=== PATIENT | female | born 1940 | race Caucasian/White ===

== ENCOUNTER 2017-05-08 15:41 | Inpatient (IN) | payer MEDICARE, OTHER, MEDICAID ==
[~2017-05-08] VITALS: Ht 160 cm; Wt 40.8 kg
[~2017-05-08 15:41] MED LIST: ACETAMINOPHEN325 M1 PO; AMOXICILLIN 50500 M1 PO; AMOXICILLIN875 MG; ARICEPT 5 MG TAB5 MG PO; ARICEPT10 M1 PO; ASPIR 8181 MG PO; ASPIRIN325 PO; ATIVAN1 MG PO; B12INJ PO; BACTRIM DS TAB1 EACH; BAYER CHEWABLE81 MG PO; BENADRYL25 MG PO; BUSPIRONE HCL10 MG PO; CARBIDOPA-LEVO1 EAC2 PO; CARBIDOPA-LEVO1 EAC6 PO; CARBIDOPA-LEVO1 EAC7 PO; CELEBREX 200 M200 M1 PO; CIPRO500 MG PO; COLACE 100 MG100 MG PO; COLACE100 MG PO; CRANBERRY200 MG PO; D3 DOTS2000 UNIT; DAIRY AID3000 UNIT PO; EFFEXOR XR75 MG PO; ENOXAPARIN30 MG/0.3 SQ; FLORANEX GRANU1 EACH PO; FLORANEX PACKET1 GM PO; FLORANEX TABLE1 EACH PO; FLORINEF ACETA0.1 MG PO; FOLIC ACID 40400 MCG PO; FOLIC ACID1 MG PO; HALDOL 0.5 MG0.5 MG PO; HALOPERIDOL 2 MG2 M1 PO; HYDROCODON-ACE1 EAC7 PO; HYDROCODONE-AP1 EAC6 PO; IBUPROFEN 600600 M1; KEFLEX500 MG PO; LEVAQUIN 500 M500 M1 PO; MACROBID 100 M100 M1 PO; MAPAP325 MG PO; MEGACE ES625 MG/5 M PO; METAMUCIL1 EAC1 PO; MIDODRINE HCL 55 M1 PO; MILK OF MA2400 MG/10 PO; MIRALAX17 GM PO; MIRALAX255 GM PO; MIRAPEX0.5 MG PO; MOM PO; NORCO 5-325 TA1 EAC1 PO; NORCO 5-325 TA1 EACH; NORCO 5-325 TA1 EACH PO; NUPLAZID17 MG PO; PROBIOTIC1 EAC1 PO; PROMETHEGAN12.5 MG PO; SENNA; SINEMET 25-1001 EAC1 PO; SINEMET CR 50/21 TAB PO; STALEVO 150 TA1 EACH PO; STOOL SOFTENER100 M1 PO; TRAMADOL 50 MG50 MG PO; VENLAFAXIN75 MG/1 T2 PO; VITAMIN B-12100 MC1; VITAMIN B-12100 MC1 PO; VITAMIN B122500 MCG PO; VITAMIN D 5050000 I1 PO; VITAMIN D PO; VOLTAREN GEL 1100 G1 TOP; VOLTAREN100 GM TOP; ZOFRAN4 MG PO; ZYPREXA2.5 MG PO; [UNRECOGNIZED DRUG - OTHER] PO
[2017-05-08 15:43] VITALS: BP 148/70
[2017-05-08 16:50] LABS: ABSOLUTE BASOPHILS 0.1 thou/uL (0.0-0.2); ABSOLUTE EOSINOPHILS 0.1 thou/uL (0.0-0.7); ABSOLUTE LYMPHOCYTES 0.9 thou/uL (0.8-5.3); ABSOLUTE MONOCYTES 0.4 thou/uL (0.0-1.2); ABSOLUTE NEUTROPHILS 3.5 thou/uL (1.6-8.1); BASOPHILS 1.3 %; EOSINOPHILS 1.1 %; HEMATOCRIT 36.9 % (37.0-47.0); HEMOGLOBIN 12.3 gm/dL (12.0-15.0); LYMPHOCYTES 18.8 %; MCH 31.1 pg (26.0-34.0); MCHC 33.4 g/dL (28.0-37.0); MCV 92.9 fL (80.0-100.0); MONOCYTES 7.9 %; NUCLEATED RBCS 0 /100WBC; PLATELET COUNT* 324 thou/uL (150-400); POLYS 70.9 %; RBC 3.98 mil/uL (4.20-5.00); RDW-CV 14.3 % (10.5-14.5); WBC 4.9 thou/uL (4.0-11.0)
[2017-05-08 16:55] LABS: APTT 25.7 Seconds (25.0-31.3); PROTIME 10.2 Seconds (9.20-11.50)
[2017-05-08 16:56] LABS: ANION GAP 6 mmol/L (7-16); BUN 20 mg/dL (7-18); CALCIUM 8.3 mg/dL (8.5-10.1); CHLORIDE 106 mmol/L (98-107); CO2 29 mmol/L (21-32); CREATININE 0.7 mg/dL (0.6-1.3); GLUCOSE 87 mg/dL (70-99); SODIUM 141 mmol/L (136-145)
[2017-05-08 17:13] LABS: URINE BILIRUBIN NEGATIVE (Negative); URINE BLOOD NEGATIVE (Negative); URINE CLARITY CLEAR; URINE COLOR YELLOW; URINE GLUCOSE-RANDOM NEGATIVE (Negative); URINE KETONES NEGATIVE (Negative); URINE LEUKOCYTES-REFLEX NEGATIVE (Negative); URINE NITRITE-REFLEX NEGATIVE (Negative); URINE PROTEIN NEGATIVE (Negative); URINE SPECIFIC GRAVITY 1.015 (1.005-1.030); URINE UROBILINOGEN 0.2 E.U./dl (0.2-1.0)
[2017-05-08 17:17] LABS: ALBUMIN 2.9 g/dL (3.4-5.0); ALKALINE PHOSPHATASE 84 U/L (46-116); CK-MB MASS 0.8 ng/mL (<0.5-3.6); NT-PRO BRAIN NAT PEPTIDE 1224 pg/mL (<300); SGOT 18 U/L (15-37); SGPT 16 U/L (30-65); TOTAL BILIRUBIN 0.5 mg/dL (<0.1-1.0); TOTAL PROTEIN 6.4 g/dL (6.4-8.2)
[2017-05-08 17:33] LABS: TROPONIN-I LEVEL <0.06 ng/mL (<0.06)
[2017-05-08 18:40] LABS: INFLUENZA A ANTIGEN None Detected (None Detect); INFLUENZA B ANTIGEN None Detected (None Detect)
--- NOTE | 2017-05-08 19:27 | NUR ---
RE: PHARMACY TO MANAGE VANCOMYCIN (EMPIRIC THERAPY, SUSPECT UTI, AMS) LABS: WT=44.9KG, WBC=4.9, SCR=0.7, CRCL=47.7, TMAX=37.2. LOADING DOSE OF 1.25GM ORDERED AND WILL CONTINUE 0.75GM Q12 HOURS. TROUGH SCHEDULED FOR 05/10/16 AT 0730, WITH A GOAL OF 15-20MCG/ML. PHARMACY WILL CONTINUE TO FOLLOW. THANK YOU.
[2017-05-08 20:00] VITALS: BP 142/69
[2017-05-08 20:08] VITALS: BP 150/67
--- NOTE | 2017-05-08 23:31 | NUR ---
PATIENT ADMITTED TO THE UNIT FOR AMS, FROM ER. TRANSFERRRED FROM LOCAL [facility] DUE TO AMS, DAUGHTER STATES, NOT HERSELF. RECENT PNEUMONIA, LUNGS CLEAR, CURRENTLY ON 2 LITERS OF 02. STATS IN THE 90S. WILL CONT. TO MONITOR TELE WHICH SHOWS SR WITH PAC. NO COMPLAINTS OF PAIN. PATIENT IS TO HAVE [facility] AT 0800, 1100,1400,1700, AND 2000. PHARMACY WILL PLACE ORDER. NO SIGN OF DISTRESS. HEALED WOUND ON COCCYX. WILL TAKE PICTURE AND PLACE IN CHART.
[2017-05-08 23:50] VITALS: BP 129/64
--- NOTE | 2017-05-09 00:51 | NUR ---
PATIENT IS SLEEPING BUT AROUSABLE. CONT. NS 100 PER HOUR. IV VANCO AND ROCEPHIN, PICTURE OF BUTTOCK TAKEN, CONT. TO TURN EVERY 2 HOURS, BARRIER CREAM NEEDED. NO SIGN OF DISTRESS AT THIS TIME.
[2017-05-09 04:16] LABS: HEMATOCRIT 29.6 % (37.0-47.0); MCH 30.8 pg (26.0-34.0); MCHC 33.1 g/dL (28.0-37.0); MPV 7.1 fl. (7.2-11.1); RBC 3.18 mil/uL (4.20-5.00); RDW-CV 14.1 % (10.5-14.5); WBC 4.9 thou/uL (4.0-11.0)
[2017-05-09 04:20] LABS: HEMOGLOBIN 9.8 gm/dL (12.0-15.0)
[2017-05-09 04:23] VITALS: BP 129/71
[2017-05-09 04:25] LABS: ALBUMIN 2.2 g/dL (3.4-5.0); CALCIUM 7.5 mg/dL (8.5-10.1); CREATININE 0.7 mg/dL (0.6-1.3); MAGNESIUM 2.1 mg/dL (1.8-2.4); POTASSIUM 4.1 mmol/L (3.5-5.1); TOTAL BILIRUBIN 0.5 mg/dL (<0.1-1.0)
--- NOTE | 2017-05-09 05:58 | NUR ---
PATIENT WAS GRAM POSITIVE COCCI IN BLOOD CULTURE DRAW IN ER. DR HERRMANN CALLED AND NEW ORDERS FOR STAT REPEAT WITH LACTIC ACID AND LEVOQUIN IV Q 24 HOURS. ORDERS NOTED.
--- NOTE | 2017-05-09 06:10 | NUR ---
PATIENT IS AFIBRILE. SLEEPING MOST OF THE NIGHT. CONT. IVF AT 100 PER HOUR. BLOOD CULTURES AND LACTIC ACID DRAWN BY LAB. NO DISTRESS AT THIS TIME.
[2017-05-09 08:00] VITALS: BP 121/64
[2017-05-09 12:12] VITALS: BP 138/72
--- NOTE | 2017-05-09 13:45 | EKG ---
[place] [address] ELECTROCARDIOGRAM REPORT Name: APRIL MARTINEZ Room: [address] ADM IN [facility].#: [id number] Admission: 05/08/17 Attend Phys: Meet Jones, Discharge: Date of : 40 Report #: [id number] THIS REPORT FOR: //name// [facility] ED Test Date: 2017-05-08 Test Time: 15:46:28 Pat Name: PARIL MARTINEZ Department: Room: [facility] Gender: F Rn Employee Health: CARSON : 1940 Requested By: Navin Torres Order Number: [id number] MD: Adria Mitchell Measurements Intervals [place] Rate: 65 P: 66 MN: 120 QRS: 8 QRSD: 96 T: 31 QT: 405 QTc: 422 Interpretive Statements Sinus rhythm Borderline low voltage, extremity leads septal infarct, old Compared to ECG 04/24/2017 02:15:21 Myocardial infarct finding now present Ventricular premature complex(es) no longer present st changes less prominent Electronically Signed On 05-09-2017 13:45:35 [employer]AURANT DISTRICT MANAGER by Adria Mitchell [email or web address] <ELECTRONICALLY SIGNED> By: Adria Mitchell MD, FACC 05/09/17 1345 1546 1546 Adria Mitchell MD, [facility] /EPI
[2017-05-09 15:55] VITALS: BP 124/53
--- NOTE | 2017-05-09 18:39 | NUR ---
I ASSUMED CARE OF THE PATIENT AT 0700. SHE IS ALERT AND ORIENTED X2 WITH CONFUSION. SHE HAS AN ALTERED MENTAL STATUS. BLOOD CULTURES CAME BACK POSITIVE TODAY AND FAMILY WAS NOTIFIED. A SWALLOW STUDY AND A CHEST XRAY WERE ORDERED TODAY. HOME MED WAS VERIFYED AND IS IN THE PATIENT DRAWER. SHE TAKES HER PILLS WHOLE IN APPLESAUCE. I SPOKE WITH THE DAUGHTER BAILEY AT 0915 AND AT 0800. HER NIKHIL WAS AT THE BEDSIDE MOST OF THE DAY. SHE IS INCONT OF BOWEL/BLADDER AND WAS UP ONE TIME TO USE THE BSC TODAY. THE WOUND ON HER BUTTOCK WAS OPEN AT THE BEGINNING OF SHIFT CHANGE AND A DRESSING WAS APPLIED. BED IS IN THE LOW LOCKED POSITION AND CALL LIGHT IS IN REACH. BED ALARM IS ON. HOURLY ROUNDING WAS COMPLETED. PATIENT NEEDS WERE MET AND PAIN WAS MANAGED. SHE IS PROGRESSING TOWARD GOALS AND I WILL CONTINUE TO MONITOR. PATIENT WAS TURNED EVERY TWO HOURS AND A BATH WAS GIVEN, FRESH LINENS APPLIED.
[2017-05-09 20:00] VITALS: BP 134/70
[2017-05-10] VITALS (8 sets, daily range): BP systolic 109–156; BP diastolic 53–73
--- NOTE | 2017-05-10 04:11 | NUR ---
ASSUMED CARE OF PT AT 1930, NURSING ASSESSMENT COMPLETED AT START OF SHIFT, PT VOICED NO CONCERNS THIS SHIFT, PT DENIES PAIN THIS SHIFT, CONTINUES ON TELE MONITOR, TRACING SINUS RHYTHM WITH OCCASIONAL PACS. HOURLY ROUNDING COMPLETED, Q2H TURNS COMPLETED, FALL PRECAUTIONS IN PLACE, CALL LIGHT WITHIN REACH.
--- NOTE | 2017-05-10 08:40 | NUR ---
VANCOMYCIN PHARMACY TO MANAGE: PATIENT HAS BEEN RECEIVING A MAINTENANCE DOSE OF VANCOMYCIN 750 MG IV Q12H WITH A TROUGH GOAL OF 15-20 MCG/ML. TEMP=36.7, NO NEW LABS FOR 05/10/17. TROUGH WAS DRAWN APPROPRIATELY WITH A RESULT OF 13 MCG/ML WHICH IS BELOW GOAL. PLAN IS TO INCREASE MAINTENANCE DOSE TO VANCOMYCIN 1 G IV Q12H WITH A TROUGH GOAL OF 15-20 MCG/ML. A TROUGH IS ORDERED FOR 05/12 AT 0830. PHARMACY WILL CONTINUE TO FOLLOW AND MONITOR.
--- NOTE | 2017-05-10 16:54 | NUR ---
ALERT AND ORIENTED X4. UP WITH ASSIST X1 WITH GAIT BELT. IV IS PATENT AND INFUSING. DENIES PAIN AND NAUSEA. ATTENDED THERAPY THIS AM. TOLERATING DIET. VSS ON ROOM AIR. HOURLY ROUNDS HAVE BEEN MAINTAINED THROUGHOUT SHIFT. CALL LIGHT IS WITHIN REACH. NURSING WILL CONTINUE TO MONITOR.
--- NOTE | 2017-05-10 22:49 | NUR ---
ASSUMED CARE OF PT AT 1930, NURSING ASSESSMENT COMPLETED AT START OF SHIFT, PT VOICED NO CONCERNS, PT MED SURG STATUS. FALL PRECAUTIONS IN PLACE, CALL LIGHT WITHIN REACH.
[2017-05-11 04:12] LABS: HEMATOCRIT 29.5 % (37.0-47.0); HEMOGLOBIN 9.6 gm/dL (12.0-15.0); MCH 30.4 pg (26.0-34.0); MCHC 32.6 g/dL (28.0-37.0); MCV 93.2 fL (80.0-100.0); RBC 3.17 mil/uL (4.20-5.00); RDW-CV 14.1 % (10.5-14.5); WBC 5.1 thou/uL (4.0-11.0)
[2017-05-11 04:18] LABS: CALCIUM 8.3 mg/dL (8.5-10.1); CREATININE 0.6 mg/dL (0.6-1.3); MAGNESIUM 1.9 mg/dL (1.8-2.4); POTASSIUM 3.2 mmol/L (3.5-5.1)
--- NOTE | 2017-05-11 05:29 | NUR ---
Assumed care of patient at 2315. She is oriented x 2 and forgetful. She is a corley. Mepilex dressing to her coccyx is dry and intact. She has bedalarm on but does try to get out of bed without assist. She has slept well.
--- NOTE | 2017-05-11 08:05 | NUR ---
ASSUMED CARE OF PATIENT AT THIS TIME. REASSESSMENT CHARTED. VSS. BED ALARM SET. PATIENT SLEEPING. WILL CONTINUE TO MONITOR.
[2017-05-11 08:06] VITALS: BP 121/52
[2017-05-11 11:50] VITALS: BP 121/52
[2017-05-11] MEDS ORDERED: LEVAQUIN 750 M750 MG PO (11:50)
--- NOTE | 2017-05-11 12:11 | NUR ---
PT.IN WC BY NURSES STATION. ALERT. COLORING. ANSWERS QUESTIONS APPROPRRIATLY. HERE AND FEELS SHE IS READY FOR DISCHARGE BACK TO [facility] WHERE SHE LIVES. NOTIFIED PAIGE/[facility]ARA [facility]. SHE SET UP WC VAN FOR 1330. WHEN CM CALLED DAUGHTER,CARMELO, SHE WAS UPSET BECAUSE NO ONE HAD TOLD HER THAT MOTHER WOULD BE DISCHARGED TODAY. EXPLAINED WE DIDN'T KNOW, THE DRCaesar JUST CAME IN AND FELT SHE LOOKED READY FOR DISCHARGE. SHE REQUESTED PT.NOT BE PICKED UP UNTIL 3-3:30 BECAUSE SHE IS WORKING. SHE WANTS TO BE HERE WHEN MOTHER DISCHARGED. SHE ALSO WANTS A COPY OF HER DISCHARGE INSTRUCTIONS. CALLED PAIGE AND SHE CHANGED DESK CLERKS SUPERVISOR TIME UNTIL 3:00. NOTIFIED CARMELO. CHART COPIED TO GO WITH PT. LUIS MARCELINO TO CALL REPORT.
--- NOTE | 2017-05-11 14:09 | NUR ---
WOUND CARE NOTE: CONSULT RECEIVED FOR ULCER TO COCCYX. PATIENT PRESENTS WITH A HEALING STAGE 3 PRESSURE ULCER TO HER SACROCOCCYGEAL REGION. WOUND MEASURES 4X2.2X0.2. 80% RED, MOIST, FRIABLE TISSUE WITH 20% YELLOW, MOIST ADHERENT SLOUGH. NOEL-WOUND WITH NEW EPITHELIUM. CLEANSED WOUND WITH WOUND CLEANSER, PATTED DRY. SKIN PREPPED. APPLIED AQUACEL AG TO WOUND BED AND SECURED WITH BORDERED FOAM. EDUCATED PATIENT ON TURNING AND KEEPING OFF AREA, STATES IT STARTS TO HURT IF SHE SITS ON IT TOO LONG. RECOMMEND WAFFLE CUSHION WHEN IN CHAIR LIMIT TIME IN CHAIR NO BRIEFS IN BED SIDE TO SIDE TURNING LIMIT HOB < 30 DEGREES
--- NOTE | 2017-05-11 14:23 | NUR ---
REPORT CALLED TO HARLEY NICHOLE.
--- NOTE | 2017-05-11 15:11 | NUR ---
PATIENT DISCHARGED BACK TO [facility]. REPORT CALLED TO [facility]. IV REMOVED. DISCHARGE PACKET AND BELONGINGS SENT WITH PATIENT.
== END 2017-05-11 15:12 | DRG 91 ==
LOC: M.ERS 15:41 → M.TBA-ER 17:39 → M.ORTHSURG 17:39 → M.2W 19:30 → M.ORTHSURG 05-11 07:49
PROVIDERS: Emergency Medicine Emergency Medical Services; Internal Medicine; ADMIT Family Medicine
DX: G92 Toxic encephalopathy (principal); J15.9 Unspecified bacterial pneumonia; E44.0 Moderate protein-calorie malnutrition; Z68.1 Body mass index [BMI] 19.9 or less, adult; G20 Parkinson's disease; R29.6 Repeated falls; F02.80 Dementia in other diseases classified elsewhere, unspecified severity, without behavioral disturbance, psychotic disturbance, mood disturbance, and anxiety; Z90.49 Acquired absence of other specified parts of digestive tract; Z79.899 Other long term (current) drug therapy; Z79.82 Long term (current) use of aspirin; Z87.81 Personal history of (healed) traumatic fracture; Z88.8 Allergy status to other drugs, medicaments and biological substances; Z82.49 Family history of ischemic heart disease and other diseases of the circulatory system

== ENCOUNTER 2017-09-04 20:26 | Emergency (ER) | payer MEDICARE, OTHER, MEDICAID ==
[~2017-09-04] VITALS: Ht 157.5 cm; Wt 45.4 kg
[~2017-09-04 20:26] MED LIST changes: +LEVAQUIN 750 M750 MG PO
[2017-09-04] MEDS ORDERED: VITAMIN C500 M2 PO (20:36)
[2017-09-04] MEDS ORDERED: TUMS PO (20:36)
[2017-09-04] MEDS ORDERED: NAMENDA 10 MG T10 MG PO (20:37)
[2017-09-04] MEDS ORDERED: FLORANEX TABLE1 EACH PO (20:37)
[2017-09-04] MEDS ORDERED: MONODOX100 MG PO (20:38)
[2017-09-04 20:46] LABS: HEMATOCRIT 37.4 % (37.0-47.0); HEMOGLOBIN 12.3 gm/dL (12.0-15.0); MCH 30.5 pg (26.0-34.0); MCHC 32.8 g/dL (28.0-37.0); MCV 93.1 fL (80.0-100.0); MPV 6.7 fl. (7.2-11.1); NUCLEATED RBCS 0 /100WBC; PLATELET COUNT* 310 thou/uL (150-400); RBC 4.02 mil/uL (4.20-5.00); RDW-CV 13.2 % (10.5-14.5); WBC 11.3 thou/uL (4.0-11.0)
[2017-09-04 20:54] LABS: CALCIUM 8.9 mg/dL (8.5-10.1); CREATININE 0.9 mg/dL (0.6-1.3)
[2017-09-04 20:56] LABS: APTT 25.9 Seconds (25.0-31.3); INR 1.1; PROTIME 10.7 Seconds (9.20-11.50)
[2017-09-04 21:00] LABS: ALBUMIN 3.1 g/dL (3.4-5.0); TOTAL BILIRUBIN 0.4 mg/dL (<0.1-1.0)
[2017-09-04 21:56] LABS: ABSOLUTE BASOPHILS 0.1 thou/uL (0.0-0.2); ABSOLUTE LYMPHOCYTES 0.3 thou/uL (0.8-5.3); ABSOLUTE MONOCYTES 0.9 thou/uL (0.0-1.2); ABSOLUTE NEUTROPHILS 9.9 thou/uL (1.6-8.1)
[2017-09-04 22:01] LABS: PLATELET ESTIMATE ADEQUATE
[2017-09-04 22:29] VITALS: BP 127/73
--- NOTE | 2017-09-05 13:27 | EKG ---
[place] [address] ELECTROCARDIOGRAM REPORT Name: APRIL MARTINEZ Room: [facility]#: [id number] Admission: 09/04/17 Attend Phys: Discharge: 09/04/17 Date of : 40 Report #: [id number] THIS REPORT FOR: //name// [facility] ED Test Date: 2017-09-04 Test Time: 20:46:34 Pat Name: APRIL MARTINEZ Department: Room: Gender: F Molding Line Operator: LEXY Diggs : 1940 Requested By: Elvin Domingo Order Number: [id number] MD: Andrea Kan Measurements Intervals [place] Rate: 78 P: 77 WA: 113 QRS: -10 QRSD: 79 T: 12 QT: 384 QTc: 438 Interpretive Statements Sinus rhythm Borderline short WA interval Probable anteroseptal infarct, old Borderline ST depression, anterolateral leads Compared to ECG 05/08/2017 15:46:28 ST (T wave) deviation now present Myocardial infarct finding still present Electronically Signed On 09-05-2017 13:27:08 CDT by Andrea Kan [email or web address] <ELECTRONICALLY SIGNED> By: Andrea Kan MD, FACC 09/05/17 1327 45 45 Andrea Kan MD, [facility] /EPI
== END 2017-09-04 22:36 | disposition home or self-care (01) ==
LOC: M.ERS 20:26
PROVIDERS: Family Medicine
DX: S00.83XA Contusion of other part of head, initial encounter (principal); G20 Parkinson's disease; Z88.8 Allergy status to other drugs, medicaments and biological substances; Z91.011 Allergy to milk products; W18.39XA Other fall on same level, initial encounter; Y93.89 Activity, other specified; Y92.89 Other specified places as the place of occurrence of the external cause; Y99.8 Other external cause status

== ENCOUNTER 2017-09-14 19:41 | Inpatient (IN) | payer MEDICARE, OTHER, MEDICAID ==
[~2017-09-14] VITALS: Ht 152.4 cm; Wt 40.4 kg
[~2017-09-14 19:41] MED LIST changes: +MONODOX100 MG PO; +NAMENDA 10 MG T10 MG PO; +TUMS PO; +VITAMIN C500 M2 PO
[2017-09-14 19:42] VITALS: BP 90/33
[2017-09-14] MEDS ORDERED: NAMENDA 10 MG T10 MG PO (19:57)
[2017-09-14] MEDS ORDERED: MIDODRINE HCL 55 M1 PO (19:57)
[2017-09-14] MEDS ORDERED: ARICEPT10 MG PO (19:58)
[2017-09-14 20:12] LABS: HEMOGLOBIN 12.4 gm/dL (12.0-15.0); MCH 31.5 pg (26.0-34.0); MCHC 33.5 g/dL (28.0-37.0); MCV 94.1 fL (80.0-100.0); MPV 7.5 fl. (7.2-11.1); NUCLEATED RBCS 0 /100WBC; PLATELET COUNT* 199 thou/uL (150-400); RBC 3.93 mil/uL (4.20-5.00); RDW-CV 14.1 % (10.5-14.5); WBC 7.4 thou/uL (4.0-11.0)
[2017-09-14 20:18] LABS: ANION GAP 11 mmol/L (7-16); BUN 57 mg/dL (7-18); CALCIUM 9.2 mg/dL (8.5-10.1); CHLORIDE 106 mmol/L (98-107); CO2 27 mmol/L (21-32); CREATININE 1.4 mg/dL (0.6-1.3); GLUCOSE 174 mg/dL (70-99); POTASSIUM 3.7 mmol/L (3.5-5.1); SODIUM 144 mmol/L (136-145)
[2017-09-14 20:26] LABS: INR 1.1; PROTIME 10.3 Seconds (9.20-11.50)
[2017-09-14 20:29] LABS: ALKALINE PHOSPHATASE 76 U/L (46-116); NT-PRO BRAIN NAT PEPTIDE 1357 pg/mL (<300); SGOT 17 U/L (15-37); TOTAL BILIRUBIN 0.6 mg/dL (<0.1-1.0); TROPONIN-I LEVEL <0.06 ng/mL (<0.06)
[2017-09-14 20:33] LABS: BE -0.2 mmol/L (-2 to +3); PCO2 37.5 mmHg (35.0-45.0); PO2 65.4 mmHg (75.0-100.0); pH 7.424 (7.340-7.450)
[2017-09-14 20:40] LABS: SGPT < 6 U/L (30-65)
[2017-09-14 20:57] LABS: URINE BILIRUBIN NEGATIVE (Negative); URINE BLOOD NEGATIVE (Negative); URINE CLARITY SL CLOUDY; URINE COLOR YELLOW; URINE GLUCOSE-RANDOM NEGATIVE (Negative); URINE KETONES 1+ (Negative); URINE LEUKOCYTES-REFLEX NEGATIVE (Negative); URINE NITRITE-REFLEX NEGATIVE (Negative); URINE PROTEIN 1+ (Negative); URINE SPECIFIC GRAVITY >= 1.030 (1.005-1.030)
[2017-09-14 21:07] LABS: ABSOLUTE LYMPHOCYTES 0.7 thou/uL (0.8-5.3); ABSOLUTE MONOCYTES 0.4 thou/uL (0.0-1.2); ABSOLUTE NEUTROPHILS 6.3 thou/uL (1.6-8.1)
[2017-09-14 21:08] LABS: PLATELET ESTIMATE ADEQUATE
[2017-09-14 22:16] LABS: BE -0.2 mmol/L (-2 to +3); HCO3 26.6 mmol/L (22.0-26.0); pH 7.316 (7.340-7.450)
[2017-09-14 22:17] LABS: PCO2 53.4 mmHg (35.0-45.0)
[2017-09-15] VITALS (23 sets, daily range): BP systolic 93–143; BP diastolic 35–93
[2017-09-15 05:04] LABS: ABSOLUTE LYMPHOCYTES 0.3 thou/uL (0.8-5.3); ABSOLUTE MONOCYTES 0.3 thou/uL (0.0-1.2); ABSOLUTE NEUTROPHILS 2.7 thou/uL (1.6-8.1); EOSINOPHILS 0.1 %; HEMATOCRIT 31.2 % (37.0-47.0); LYMPHOCYTES 7.9 %; MCH 31.3 pg (26.0-34.0); MCHC 32.9 g/dL (28.0-37.0); MCV 95.2 fL (80.0-100.0); MONOCYTES 8.1 %; MPV 7.8 fl. (7.2-11.1); NUCLEATED RBCS 0 /100WBC; PLATELET COUNT* 160 thou/uL (150-400); POLYS 83.9 %; RBC 3.28 mil/uL (4.20-5.00); RDW-CV 14.2 % (10.5-14.5); WBC 3.2 thou/uL (4.0-11.0)
[2017-09-15 05:06] LABS: HEMOGLOBIN 10.2 gm/dL (12.0-15.0)
[2017-09-15 05:23] LABS: URINE BILIRUBIN NEGATIVE (Negative); URINE BLOOD 1+ (Negative); URINE CLARITY CLEAR; URINE COLOR YELLOW; URINE GLUCOSE-RANDOM NEGATIVE (Negative); URINE KETONES NEGATIVE (Negative); URINE LEUKOCYTES-REFLEX NEGATIVE (Negative); URINE NITRITE-REFLEX NEGATIVE (Negative); URINE PROTEIN 1+ (Negative); URINE SPECIFIC GRAVITY >= 1.030 (1.005-1.030); URINE UROBILINOGEN 0.2 E.U./dl (0.2-1.0)
[2017-09-15 05:26] LABS: BACTERIA-REFLEX 1-9 Few /HPF (None Seen); SQUAMOUS 0-3 Few /LPF (0-3); URINE RBC 3-10 Few /HPF (0-2); URINE WBC-REFLEX 0-5 Rare /HPF (0-5)
[2017-09-15 05:27] LABS: AMORPHOUS URATES Moderate /LPF (None Seen); CASTS None Seen /LPF (None Seen)
[2017-09-15 05:36] LABS: ALKALINE PHOSPHATASE 51 U/L (46-116); ANION GAP 9 mmol/L (7-16); BUN 54 mg/dL (7-18); CALCIUM 8.3 mg/dL (8.5-10.1); CHLORIDE 110 mmol/L (98-107); CO2 26 mmol/L (21-32); CREATININE 1.1 mg/dL (0.6-1.3); GLUCOSE 121 mg/dL (70-99); POTASSIUM 4.9 mmol/L (3.5-5.1); SGOT 21 U/L (15-37); SODIUM 145 mmol/L (136-145); TOTAL BILIRUBIN 0.6 mg/dL (<0.1-1.0)
[2017-09-15 05:37] LABS: ALBUMIN 2.3 g/dL (3.4-5.0); SGPT < 6 U/L (30-65); TOTAL PROTEIN 5.8 g/dL (6.4-8.2)
--- NOTE | 2017-09-15 09:15 | EKG ---
[place] [address] ELECTROCARDIOGRAM REPORT Name: APRIL MARTINEZ Room: [address] IN [facility]#: [id number] Admission: 09/14/17 Attend Phys: Mackenzie Wild Discharge: Date of : 40 Report #: [id number] THIS REPORT FOR: //name// [facility] ED Test Date: 2017-09-14 Test Time: 20:06:54 Pat Name: APRIL MARTINEZ Department: Room: Gender: F Admitting Counselor: SALAS : 1940 Requested By: Oliva Hooker Order Number: [id number] MD: Andrea Kan Measurements Intervals [place] Rate: 77 P: 96 SC: 107 QRS: 10 QRSD: 83 T: 269 QT: 379 QTc: 429 Interpretive Statements Sinus rhythm Short SC interval Anteroseptal infarct, old Nonspecific repol abnormality, lateral leads Baseline wander in lead(s) V2 Compared to ECG 09/04/2017 20:46:34 Early repolarization now present ST (T wave) deviation no longer present Myocardial infarct finding still present Electronically Signed On 09-15-2017 9:15:14 CDT by Andrea Kan [email or web address] <ELECTRONICALLY SIGNED> By: Andrea Kan MD, FACC 09/15/17 0915 05 05 Andrea Kan MD, FACC /EPI
[2017-09-15 09:17] LABS: BE -3.1 mmol/L (-2 to +3); HCO3 19.8 mmol/L (22.0-26.0); PCO2 28.6 mmHg (35.0-45.0); PO2 83.3 mmHg (75.0-100.0); pH 7.458 (7.340-7.450)
[2017-09-16] VITALS (15 sets, daily range): BP systolic 102–152; BP diastolic 44–79
[2017-09-16 04:39] LABS: HEMATOCRIT 32.3 % (37.0-47.0); HEMOGLOBIN 10.5 gm/dL (12.0-15.0); MCH 31.3 pg (26.0-34.0); MCHC 32.4 g/dL (28.0-37.0); MCV 96.5 fL (80.0-100.0); MPV 8.4 fl. (7.2-11.1); RBC 3.35 mil/uL (4.20-5.00); RDW-CV 14.4 % (10.5-14.5); WBC 6.1 thou/uL (4.0-11.0)
[2017-09-16 05:33] LABS: CALCIUM 8.5 mg/dL (8.5-10.1); CREATININE 0.9 mg/dL (0.6-1.3); POTASSIUM 4.1 mmol/L (3.5-5.1)
[2017-09-17] VITALS (19 sets, daily range): BP systolic 111–159; BP diastolic 54–95
[2017-09-17 06:28] LABS: HCO3 28.4 mmol/L (22.0-26.0); PCO2 46.9 mmHg (35.0-45.0); PO2 69.3 mmHg (75.0-100.0)
[2017-09-17 08:39] LABS: CALCIUM 8.6 mg/dL (8.5-10.1); CREATININE 0.9 mg/dL (0.6-1.3); HEMOGLOBIN 10.8 gm/dL (12.0-15.0); MAGNESIUM 1.9 mg/dL (1.8-2.4); MCH 30.4 pg (26.0-34.0); MCHC 32.9 g/dL (28.0-37.0); MCV 92.4 fL (80.0-100.0); MPV 8.1 fl. (7.2-11.1); POTASSIUM 3.1 mmol/L (3.5-5.1); RBC 3.57 mil/uL (4.20-5.00); RDW-CV 13.9 % (10.5-14.5); WBC 6.9 thou/uL (4.0-11.0)
[2017-09-18] VITALS (22 sets, daily range): BP systolic 106–153; BP diastolic 60–93
[2017-09-18 10:57] LABS: HEMATOCRIT 38.1 % (37.0-47.0); HEMOGLOBIN 12.4 gm/dL (12.0-15.0); MCH 30.3 pg (26.0-34.0); MCHC 32.6 g/dL (28.0-37.0); MCV 92.9 fL (80.0-100.0); MPV 7.7 fl. (7.2-11.1); NUCLEATED RBCS 0 /100WBC; PLATELET COUNT* 166 thou/uL (150-400); RDW-CV 14.4 % (10.5-14.5); WBC 7.4 thou/uL (4.0-11.0)
[2017-09-18 11:12] LABS: ALBUMIN 2.9 g/dL (3.4-5.0); CALCIUM 9.2 mg/dL (8.5-10.1); CREATININE 0.9 mg/dL (0.6-1.3); POTASSIUM 3.5 mmol/L (3.5-5.1); TOTAL BILIRUBIN 0.8 mg/dL (<0.1-1.0); TOTAL PROTEIN 6.5 g/dL (6.4-8.2)
[2017-09-18 11:33] LABS: ABSOLUTE LYMPHOCYTES 0.4 thou/uL (0.8-5.3); ABSOLUTE MONOCYTES 0.4 thou/uL (0.0-1.2); ABSOLUTE NEUTROPHILS 6.6 thou/uL (1.6-8.1)
[2017-09-18 11:34] LABS: PLATELET ESTIMATE ADEQUATE
[2017-09-18 14:50] LABS: BE 5.6 mmol/L (-2 to +3); HCO3 29.2 mmol/L (22.0-26.0); PO2 67.2 mmHg (75.0-100.0); pH 7.492 (7.340-7.450)
[2017-09-19] VITALS (20 sets, daily range): BP systolic 98–147; BP diastolic 57–89
[2017-09-19 04:09] LABS: ABSOLUTE LYMPHOCYTES 0.3 thou/uL (0.8-5.3); ABSOLUTE MONOCYTES 0.3 thou/uL (0.0-1.2); ABSOLUTE NEUTROPHILS 10.8 thou/uL (1.6-8.1); BASOPHILS 0.1 %; EOSINOPHILS 0.2 %; HEMATOCRIT 34.4 % (37.0-47.0); HEMOGLOBIN 11.3 gm/dL (12.0-15.0); LYMPHOCYTES 2.3 %; MCH 30.8 pg (26.0-34.0); MCHC 32.9 g/dL (28.0-37.0); MCV 93.7 fL (80.0-100.0); MONOCYTES 2.7 %; MPV 7.7 fl. (7.2-11.1); NUCLEATED RBCS 0 /100WBC; PLATELET COUNT* 148 thou/uL (150-400); POLYS 94.7 %; RBC 3.67 mil/uL (4.20-5.00); RDW-CV 14.2 % (10.5-14.5); WBC 11.4 thou/uL (4.0-11.0)
[2017-09-19 04:37] LABS: ALBUMIN 2.5 g/dL (3.4-5.0); ALKALINE PHOSPHATASE 48 U/L (46-116); ANION GAP 3 mmol/L (7-16); BUN 31 mg/dL (7-18); CALCIUM 8.6 mg/dL (8.5-10.1); CHLORIDE 107 mmol/L (98-107); CO2 35 mmol/L (21-32); CREATININE 0.9 mg/dL (0.6-1.3); GLUCOSE 150 mg/dL (70-99); POTASSIUM 5.1 mmol/L (3.5-5.1); SGOT 17 U/L (15-37); SGPT < 6 U/L (30-65); SODIUM 145 mmol/L (136-145); TOTAL BILIRUBIN 0.7 mg/dL (<0.1-1.0); TOTAL PROTEIN 5.7 g/dL (6.4-8.2)
[2017-09-20] VITALS (16 sets, daily range): BP systolic 98–142; BP diastolic 58–81
--- NOTE | 2017-09-20 09:18 | CON ---
[address] [address] CONSULTATION Name: APRIL MARTINEZ Room: [address] IN .R.#: [id number] Admission: 09/14/17 Attend Phys: Mackeznie Wild Discharge: Date of : 40 Report #: [id number] THIS REPORT FOR: //name// CC: Corine Avalos DATE OF SERVICE: 09/19/2017 REASON FOR CONSULTATION: Possible pneumonia, respiratory failure, antibiotic management. HISTORY OF PRESENT ILLNESS: The patient is a 77-year-old white woman that I am advised by the patient's nurse, I believe Pepe, who Dr. Strong had recommended the patient be made comfort care. Family undecided about this: I am asked by her attending physician to evaluate patient for antibiotic management. The patient is unable to give any information whatsoever and all information on the patient is gathered from the review of records. PAST MEDICAL HISTORY: 1. Parkinson's disease. 2. Dementia. 3. Possible aspiration pneumonia. DRUG ALLERGIES: LORAZEPAM, ALPRAZOLAM, HALDOL, LACTOSE, QUETIAPINE. MEDICATIONS: The patient is on treatment with vancomycin 500 mg IV every 12 hours. Receiving levodopa and carbidopa, furosemide, magnesium hydroxide, methylprednisolone 40 mg IV twice daily, donepezil as well as memantine, venlafaxine, ascorbic acid, buspirone, aspirin, Levaquin 750 mg IV every other day, p.r.n. promethazine, p.r.n. ondansetron, bisacodyl, melatonin, Benadryl p.r.n., acetaminophen p.r.n. as well as magnesium and potassium replacement per protocol. She is also on Zosyn 3.375 g IV every 8 hours and receives Atrovent and albuterol inhalation treatments as well. FAMILY HISTORY: See H and P, old records. SOCIAL HISTORY: See H and P, old records. REVIEW OF SYSTEMS: Unable to obtain. PHYSICAL EXAMINATION: GENERAL: This is an elderly, frail, rather small person on BiPAP, unarousable that does not participate in the history or physical exam. VITAL SIGNS: Temperature 97, pulse 70, respirations 16, BP 136/72, weight 92 pounds, height 5 feet. HEENMT: Unable to examine pupils or mouth since the [place] [address] CONSULTATION Name: APRIL MARTINEZ Room: [address]#: [id number] Admission: 09/14/17 Attend Phys: Mackenzie Wild Discharge: Date of : 40 Report #: [id number] tightly and she is on BiPAP. NECK: Stiff. The patient is stiff all over. LUNGS: Few crackles on bases. HEART: S1, S2. ABDOMEN: Soft, no masses or megaly. PELVIC AND RECTAL: Deferred. EXTREMITIES: No clubbing, cyanosis. NEUROLOGIC: Unable to evaluate. LABORATORY DATA: Sodium 145, potassium 5.1, BUN 31, creatinine 0.9, glucose 150, albumin 2.5 g/dL. NT-proBNP 8729 on 09/17. Vancomycin trough was 4 mcg/dL on 09/17. WBC 11,400; hemoglobin 11.3 g/dL; platelets 148,000. White blood cell count differential revealed 94% segmented neutrophils. The urinalysis on 09/15 revealed some microscopic hematuria and bacteriuria and moderate amorphous urates. ABGs: pH 7.49, pCO2 39, pO2 67, bicarbonate 29. These set of gases is on FIO2 of 50% and obviously BiPAP. MICROBIOLOGY DATA: Urine negative for Streptococcus pneumoniae antigen and legionella antigen on 09/15. Sputum culture is pending receipt. Blood cultures no growth. RADIOLOGY EVALUATION: A chest x-ray obtained on 09/18 revealed hyperinflation of the lungs as well as multifocal infiltrates. ASSESSMENT: 1. Possible aspiration pneumonia. 2. Respiratory failure, on BiPAP. 3. Dementia. 4. Parkinson's disease. 5. MULTIPLE DRUG ALLERGIES. SUGGESTIONS: Continue coverage with vancomycin, Zosyn and Levaquin for possible healthcare-associated aspiration pneumonia. Prognosis poor, survival doubtful, long-term care per family's decision. Dr. Avalos, thank you for requesting our suggestions in the care of your patient. <ELECTRONICALLY SIGNED> By: Hernesto Rutledge MD 09/20/17 0918 0627 0912Hernesto Rutledge MD /nt
[2017-09-20 11:42] LABS: ABSOLUTE LYMPHOCYTES 0.2 thou/uL (0.8-5.3); ABSOLUTE MONOCYTES 0.2 thou/uL (0.0-1.2); ABSOLUTE NEUTROPHILS 12.2 thou/uL (1.6-8.1); BASOPHILS 0.1 %; HEMATOCRIT 37.6 % (37.0-47.0); HEMOGLOBIN 12.2 gm/dL (12.0-15.0); MCHC 32.4 g/dL (28.0-37.0); MCV 92.6 fL (80.0-100.0); MONOCYTES 1.9 %; MPV 8.4 fl. (7.2-11.1); NUCLEATED RBCS 0 /100WBC; PLATELET COUNT* 198 thou/uL (150-400); RBC 4.06 mil/uL (4.20-5.00); RDW-CV 13.9 % (10.5-14.5); WBC 12.7 thou/uL (4.0-11.0)
[2017-09-20 11:54] LABS: ALBUMIN 2.5 g/dL (3.4-5.0); CALCIUM 8.8 mg/dL (8.5-10.1); CREATININE 0.9 mg/dL (0.6-1.3); POTASSIUM 3.1 mmol/L (3.5-5.1); TOTAL BILIRUBIN 0.6 mg/dL (<0.1-1.0); TOTAL PROTEIN 6.6 g/dL (6.4-8.2)
--- NOTE | 2017-09-20 14:41 | 2DMMODE ---
[place] [address] 2 D/M-MODE ECHOCARDIOGRAM Name: APRIL MARTINEZ Room: [address] IN [facility]#: [id number] Admission: 09/14/17 Attend Phys: Victorino Avalos Discharge: Date of : 40 Date of Service: 09/20/17 1314 Report #: [id number] THIS REPORT FOR: //name// APPROVED REPORT Study performed: 09/20/2017 09:07:53 EXAM: Comprehensive 2D, Doppler, and color-flow Echocardiogram Patient Location: In-Patient Room #: 003 Status: routine BSA: 1.34 HR: 83 bpm BP: 118/64 mmHg Rhythm: NSR Other Information Study Quality: Good Indications Dyspnea 2D Dimensions LVEF(%): 66.03 (>50%) IVSd: 8.46 (7-11mm) LVOT Diam: 20.06 (18-24mm) LVDd: 36.93 mm PWd: 8.28 (7-11mm) Ascending Ao: 25.43 (22-36mm) LVDs: 23.76 (25-40mm) Aortic Root: 30.73 mm Moore's LVEF: 66.03 % Volumes Left Atrial Volume (Systole) LA ESV Index: 26.30 mL/m2 Aortic Valve AoV Peak Javi.: 1.05 m/s AO Peak Gr.: 4.42 mmHg LVOT Max P.91 mmHg AO Mean Gr.: 2.09 mmHg LVOT Mean P.05 mmHg LVOT Max V: 0.69 m/s AO V2 VTI: 18.91 cm LVOT Mean V: 0.48 m/s LVOT V1 VTI: 9.44 cm Mitral Valve E/A Ratio: 0.84 [place] [address] 2 D/M-MODE ECHOCARDIOGRAM Name: APRIL MARTINEZ Room: [address] IN ..#: [id number] Admission: 09/14/17 Attend Phys: Victorino Avalos Discharge: Date of : 40 Date of Service: 09/20/17 1314 Report #: [id number] MV Decel. Time: 213.41 ms MV E Max Javi.: 0.53 m/s MV PHT: 61.89 ms MVA (PHT): 3.55 cm2 TDI E/Lateral E': 4.82 E/Medial E': 4.82 Medial E' Javi.: 0.11 m/s Lateral E' Javi.: 0.11 m/s Pulmonary Valve PV Peak Javi.: 0.97 m/s PV Peak Gr.: 3.78 mmHg Tricuspid Valve TR Peak Gr.: 27.96 mmHg RVSP: 33.00 mmHg Left Ventricle The left ventricle is normal size. There is normal LV segmental wall motion. There is normal left ventricular wall thickness. Left ventricular systolic function is normal. The left ventricular ejection fraction is within the normal range. LVEF is 60-65%. Grade I - abnormal relaxation pattern. Right Ventricle The right ventricle is normal size. The right ventricular systolic function is normal. Atria The left atrium size is normal. The right atrium size is normal. Aortic Valve The aortic valve is normal in structure. No aortic regurgitation is present. There is no aortic valvular stenosis. Mitral Valve The mitral valve is normal in structure. Moderate mitral regurgitation. No evidence of mitral valve stenosis. Tricuspid Valve The tricuspid valve is normal in structure. Moderate tricuspid regurgitation. The RVSP is 30-35 mmHg. Pulmonic Valve The pulmonary valve is normal in structure. [place] [address] 2 D/M-MODE ECHOCARDIOGRAM Name: APRIL MARTINEZ Anjelica Room: [address]#: [id number] Admission: 09/14/17 Attend Phys: Victorino Avalos Discharge: Date of : 40 Date of Service: 09/20/17 1314 Report #: [id number] Great Vessels The aortic root is normal in size. IVC is normal in size and collapses with >50% inspiration Pericardium There is no pericardial effusion. <Conclusion> LVEF is 60-65%. Moderate mitral regurgitation. Moderate tricuspid regurgitation. The RVSP is 30-35 mmHg. <ELECTRONICALLY SIGNED> By: Adria Mitchell MD, [facility] 09/20/17 1314 131 Adria Mitchell MD, FACC /INF
[2017-09-21] VITALS: BP 123/71; BP 152/66
[2017-09-21 02:00] VITALS: BP 101/76
[2017-09-21 04:00] VITALS: BP 129/58
[2017-09-21 05:53] LABS: ABSOLUTE LYMPHOCYTES 0.3 thou/uL (0.8-5.3); ABSOLUTE MONOCYTES 0.4 thou/uL (0.0-1.2); ABSOLUTE NEUTROPHILS 10.7 thou/uL (1.6-8.1); BASOPHILS 0.3 %; HEMATOCRIT 33.8 % (37.0-47.0); LYMPHOCYTES 2.3 %; MCH 30.4 pg (26.0-34.0); MCHC 32.6 g/dL (28.0-37.0); MCV 93.1 fL (80.0-100.0); MONOCYTES 3.2 %; MPV 7.9 fl. (7.2-11.1); NUCLEATED RBCS 0 /100WBC; PLATELET COUNT* 182 thou/uL (150-400); POLYS 94.2 %; RBC 3.63 mil/uL (4.20-5.00); RDW-CV 13.7 % (10.5-14.5); WBC 11.4 thou/uL (4.0-11.0)
[2017-09-21 06:00] VITALS: BP 141/60
[2017-09-21 06:05] LABS: ALBUMIN 2.3 g/dL (3.4-5.0); ALKALINE PHOSPHATASE 49 U/L (46-116); ANION GAP 2 mmol/L (7-16); BUN 39 mg/dL (7-18); CALCIUM 8.6 mg/dL (8.5-10.1); CHLORIDE 110 mmol/L (98-107); CO2 36 mmol/L (21-32); CREATININE 0.7 mg/dL (0.6-1.3); GLUCOSE 188 mg/dL (70-99); POTASSIUM 3.6 mmol/L (3.5-5.1); SGOT 12 U/L (15-37); SGPT < 6 U/L (30-65); SODIUM 148 mmol/L (136-145); TOTAL BILIRUBIN 0.5 mg/dL (<0.1-1.0)
[2017-09-21 06:32] LABS: PREALBUMIN 16.4 mg/dL (18.0-35.7)
[2017-09-21 07:30] VITALS: BP 147/64
[2017-09-22 07:40] LABS: HEMATOCRIT 37.1 % (37.0-47.0); HEMOGLOBIN 11.7 gm/dL (12.0-15.0); MCH 29.7 pg (26.0-34.0); MCHC 31.6 g/dL (28.0-37.0); MCV 93.9 fL (80.0-100.0); MPV 7.9 fl. (7.2-11.1); NUCLEATED RBCS 0 /100WBC; PLATELET COUNT* 208 thou/uL (150-400); RBC 3.95 mil/uL (4.20-5.00); RDW-CV 13.8 % (10.5-14.5); WBC 13.8 thou/uL (4.0-11.0)
[2017-09-22 07:54] LABS: ALBUMIN 2.7 g/dL (3.4-5.0); ALKALINE PHOSPHATASE 53 U/L (46-116); ANION GAP 4 mmol/L (7-16); BUN 29 mg/dL (7-18); CALCIUM 8.8 mg/dL (8.5-10.1); CHLORIDE 109 mmol/L (98-107); CO2 35 mmol/L (21-32); CREATININE 0.7 mg/dL (0.6-1.3); GLUCOSE 133 mg/dL (70-99); SGOT 18 U/L (15-37); SGPT < 6 U/L (30-65); SODIUM 148 mmol/L (136-145); TOTAL BILIRUBIN 0.8 mg/dL (<0.1-1.0); TOTAL PROTEIN 6.5 g/dL (6.4-8.2)
[2017-09-22 07:59] LABS: POTASSIUM 2.9 mmol/L (3.5-5.1)
[2017-09-22 08:00] VITALS: BP 128/66
[2017-09-22 08:27] LABS: PREALBUMIN 23.6 mg/dL (18.0-35.7)
[2017-09-22 08:36] LABS: ABSOLUTE LYMPHOCYTES 0.3 thou/uL (0.8-5.3); ABSOLUTE MONOCYTES 0.4 thou/uL (0.0-1.2); ABSOLUTE NEUTROPHILS 13.1 thou/uL (1.6-8.1); ANISOCYTOSIS 1+; PLATELET ESTIMATE ADEQUATE; POIKILOCYTOSIS 1+
[2017-09-22 16:47] VITALS: BP 140/67
[2017-09-22 23:45] VITALS: BP 133/76
[2017-09-23 03:45] VITALS: BP 130/77
[2017-09-23 09:45] VITALS: BP 127/62
[2017-09-23 10:20] LABS: ABSOLUTE LYMPHOCYTES 0.2 thou/uL (0.8-5.3); ABSOLUTE MONOCYTES 0.2 thou/uL (0.0-1.2); ABSOLUTE NEUTROPHILS 15.7 thou/uL (1.6-8.1); BASOPHILS 0.1 %; HEMATOCRIT 34.4 % (37.0-47.0); HEMOGLOBIN 11.1 gm/dL (12.0-15.0); LYMPHOCYTES 1.2 %; MCH 30.1 pg (26.0-34.0); MCHC 32.4 g/dL (28.0-37.0); MONOCYTES 1.5 %; MPV 7.9 fl. (7.2-11.1); NUCLEATED RBCS 0 /100WBC; PLATELET COUNT* 216 thou/uL (150-400); POLYS 97.2 %; RBC 3.69 mil/uL (4.20-5.00); RDW-CV 14.1 % (10.5-14.5); WBC 16.2 thou/uL (4.0-11.0)
[2017-09-23 10:40] LABS: ALBUMIN 2.3 g/dL (3.4-5.0); CALCIUM 8.4 mg/dL (8.5-10.1); CREATININE 0.7 mg/dL (0.6-1.3); POTASSIUM 3.7 mmol/L (3.5-5.1); TOTAL BILIRUBIN 0.8 mg/dL (<0.1-1.0); TOTAL PROTEIN 5.4 g/dL (6.4-8.2)
[2017-09-23 18:13] VITALS: BP 121/69
[2017-09-23 20:25] VITALS: BP 111/51
[2017-09-24] VITALS: BP 126/66
[2017-09-24 04:00] VITALS: BP 109/47
[2017-09-24 05:11] LABS: ABSOLUTE BASOPHILS 0.1 thou/uL (0.0-0.2); ABSOLUTE LYMPHOCYTES 0.4 thou/uL (0.8-5.3); ABSOLUTE MONOCYTES 0.5 thou/uL (0.0-1.2); ABSOLUTE NEUTROPHILS 15.4 thou/uL (1.6-8.1); BASOPHILS 0.4 %; HEMATOCRIT 30.4 % (37.0-47.0); HEMOGLOBIN 10.2 gm/dL (12.0-15.0); LYMPHOCYTES 2.4 %; MCH 30.6 pg (26.0-34.0); MCHC 33.6 g/dL (28.0-37.0); MCV 91.2 fL (80.0-100.0); MONOCYTES 3.3 %; MPV 7.6 fl. (7.2-11.1); NUCLEATED RBCS 0 /100WBC; PLATELET COUNT* 202 thou/uL (150-400); POLYS 93.9 %; RBC 3.33 mil/uL (4.20-5.00); RDW-CV 13.6 % (10.5-14.5); WBC 16.4 thou/uL (4.0-11.0)
[2017-09-24 05:46] LABS: PREALBUMIN 22.1 mg/dL (18.0-35.7)
[2017-09-24 06:15] LABS: ALBUMIN 2.2 g/dL (3.4-5.0); CALCIUM 8.2 mg/dL (8.5-10.1); CREATININE 0.8 mg/dL (0.6-1.3); POTASSIUM 3.5 mmol/L (3.5-5.1); TOTAL BILIRUBIN 0.7 mg/dL (<0.1-1.0)
[2017-09-24 08:30] VITALS: BP 125/56
[2017-09-24 11:09] VITALS: BP 125/56
[2017-09-24] MEDS ORDERED: DUONEB 2.5-0.5 M3 ML INH (13:25)
[2017-09-24 13:26] VITALS: BP 125/56
== END 2017-09-24 17:00 | DRG 871 ==
LOC: M.ERS 19:41 → M.ICU 23:34 → M.TBA-ER 23:34 → M.ICU 23:43 → M.3W 09-21 16:24
PROVIDERS: Emergency Medicine; Internal Medicine; Internal Medicine Critical Care Medicine; ADMIT Internal Medicine
PROC: 5A09457 Assistance with Respiratory Ventilation, 24-96 Consecutive Hours, Continuous Positive Airway Pressure (ICD-10-PCS; principal; 2017-09-14)
PROC: 05HD33Z Insertion of Infusion Device into Right Cephalic Vein, Percutaneous Approach (ICD-10-PCS; 2017-09-20)
PROC: B54MZZA Ultrasonography of Right Upper Extremity Veins, Guidance (ICD-10-PCS; 2017-09-20)
DX: A41.9 Sepsis, unspecified organism (principal); J69.0 Pneumonitis due to inhalation of food and vomit; G92 Toxic encephalopathy; N17.0 Acute kidney failure with tubular necrosis; J96.01 Acute respiratory failure with hypoxia; E44.0 Moderate protein-calorie malnutrition; N39.0 Urinary tract infection, site not specified; Z68.1 Body mass index [BMI] 19.9 or less, adult; Z66 Do not resuscitate; G20 Parkinson's disease; F02.80 Dementia in other diseases classified elsewhere, unspecified severity, without behavioral disturbance, psychotic disturbance, mood disturbance, and anxiety; S00.03XA Contusion of scalp, initial encounter; S51.812A Laceration without foreign body of left forearm, initial encounter; W19.XXXA Unspecified fall, initial encounter; Y93.89 Activity, other specified; Y92.89 Other specified places as the place of occurrence of the external cause; Y99.8 Other external cause status; Z79.899 Other long term (current) drug therapy; Z79.2 Long term (current) use of antibiotics; Z90.49 Acquired absence of other specified parts of digestive tract; Z79.82 Long term (current) use of aspirin; Z98.49 Cataract extraction status, unspecified eye; Z82.49 Family history of ischemic heart disease and other diseases of the circulatory system

== ENCOUNTER 2017-09-25 10:06 | Inpatient (IN) | payer MEDICARE, OTHER, MEDICAID ==
[2017-09-25] VITALS (31 sets, daily range): BP systolic 00–138; BP diastolic 12–80
[~2017-09-25] VITALS: Ht 152.4 cm; Wt 42.3 kg
[~2017-09-25 10:06] MED LIST changes: +ARICEPT10 MG PO; +DUONEB 2.5-0.5 M3 ML INH
--- NOTE | 2017-09-25 10:39 | NUR ---
RECTAL 96.8
[2017-09-25 11:12] LABS: HEMATOCRIT 36.4 % (37.0-47.0); HEMOGLOBIN 11.5 gm/dL (12.0-15.0); MCH 30.1 pg (26.0-34.0); MCHC 31.5 g/dL (28.0-37.0); MCV 95.4 fL (80.0-100.0); MPV 8.3 fl. (7.2-11.1); NUCLEATED RBCS 0 /100WBC; RBC 3.81 mil/uL (4.20-5.00); RDW-CV 14.4 % (10.5-14.5); WBC 28.8 thou/uL (4.0-11.0)
[2017-09-25 11:15] LABS: PLATELET COUNT* 350 thou/uL (150-400)
[2017-09-25 11:19] LABS: ANION GAP 6 mmol/L (7-16); BUN 24 mg/dL (7-18); CALCIUM 8.2 mg/dL (8.5-10.1); CHLORIDE 105 mmol/L (98-107); CO2 29 mmol/L (21-32); CREATININE 1.1 mg/dL (0.6-1.3); GLUCOSE 171 mg/dL (70-99); SODIUM 140 mmol/L (136-145)
[2017-09-25 11:21] LABS: APTT 21.1 Seconds (25.0-31.3); INR 1.1; PROTIME 10.8 Seconds (9.20-11.50)
[2017-09-25 11:37] LABS: ABSOLUTE LYMPHOCYTES 0.9 thou/uL (0.8-5.3); ABSOLUTE MONOCYTES 0.3 thou/uL (0.0-1.2); ABSOLUTE NEUTROPHILS 27.6 thou/uL (1.6-8.1); PLATELET ESTIMATE ADEQUATE
[2017-09-25 11:38] LABS: ANISOCYTOSIS 1+; POIKILOCYTOSIS 1+
[2017-09-25 11:39] LABS: ALBUMIN 2.6 g/dL (3.4-5.0); ALKALINE PHOSPHATASE 62 U/L (46-116); CK-MB MASS 2.5 ng/mL (<0.5-3.6); NT-PRO BRAIN NAT PEPTIDE 1429 pg/mL (<300); SGOT 19 U/L (15-37); SGPT < 6 U/L (30-65); TOTAL BILIRUBIN 0.8 mg/dL (<0.1-1.0); TOTAL PROTEIN 6.3 g/dL (6.4-8.2); TROPONIN-I LEVEL <0.06 ng/mL (<0.06)
[2017-09-25 13:09] LABS: URINE BILIRUBIN NEGATIVE (Negative); URINE BLOOD 2+ (Negative); URINE CLARITY CLEAR; URINE COLOR YELLOW; URINE GLUCOSE-RANDOM NEGATIVE (Negative); URINE KETONES NEGATIVE (Negative); URINE LEUKOCYTES-REFLEX NEGATIVE (Negative); URINE NITRITE-REFLEX NEGATIVE (Negative); URINE PROTEIN 1+ (Negative); URINE UROBILINOGEN 0.2 E.U./dl (0.2-1.0)
[2017-09-25 13:23] LABS: BACTERIA-REFLEX 1-9 Few /HPF (None Seen); SQUAMOUS 0-3 Few /LPF (0-3); URINE WBC-REFLEX 0-5 Rare /HPF (0-5)
[2017-09-25 13:24] LABS: AMORPHOUS PHOSPHATES Few /LPF (None Seen); CASTS None Seen /LPF (None Seen); MUCUS 4-6 Moderate strn/LPF (None Seen)
--- NOTE | 2017-09-25 14:57 | NUR ---
DISCUSSED WITH DR HERRMANN AND DAUGHTER OF PATIENT. PATIENT IS TO HAVE NO CHEST COMPRESIONS AND SHOCKING. OK TO STAY ON VENTILATOR FOR NOW.
[2017-09-25 17:11] LABS: BE -5.1 mmol/L (-2 to +3); HCO3 26.1 mmol/L (22.0-26.0); PO2 68.4 mmHg (75.0-100.0)
[2017-09-25 17:16] LABS: PCO2 84.9 mmHg (35.0-45.0); pH 7.105 (7.340-7.450)
--- NOTE | 2017-09-25 18:28 | NUR ---
PATIENT DROPPED SATURATIONS INTO THE 70S, BLOOD PRESSURE SLOWLY DROPPED AND THEN TANKED FROM [address] CANO PLACED RIGHT JUGLAR CENTRAL LINE AT BEDSIDE, PLACEMENT CONFIRMED. PATIENT HAD TO BE BAGGED DUE TO SATURATIONS MAINTAINING IN THE 50S. CHEST TUBE THEN PLACED AT BEDSIDE BY DR CANO, SATS BEGAN TO COME UP. ABGS WERE CALLED TO DR RESENDIZ, ORDERS RECEIVED. PATIENT WAS MAXED ON LEVOPHED AND DOPAMINE WAS STARTED. AFTER CHEST TUBE PLACEMENT DOPAMINE WAS ABLE TO BE TITRATED OFF AND LEVOPHED TITRATED DOWN. STILL REMAINS ON SMALL AMOUNT OF LEVOPHED AT THIS TIME. DR HERRMANN UPDATED ON PATIENT STATUS. DAUGHTER AND ALSO UPDATED ON PATIENT STATUS. DR CANO TOOK SOME TIME TO SPEAK WITH FAMILY WELL. ALL QUESTIONS ANSWERED. PATIENT IS ON VERSED GTT FOR COMFORT. PUPILS ARE FIXED AND 2CM. PRESSURES REMAIN SOFT AND O2 REMAINS 88 ON VENT AT 100% FIO2. ASSESSMENT DOCUMENTED. CHEST TUBE SECURED, CENTRAL LINE SECURED. SALESFORCE CONSULTANT IN PLACE. TEMP IS NOW AT 97.0 CORE TEMP FROM 95.5 ARRIVING TO ICU.
--- NOTE | 2017-09-25 19:47 | NUR ---
PATIENT CONTINUES TO DROP PRESSURES AT THIS TIME, LEVO TITRATED BACK UP, SATS NOW IN THE 70S. RESPIRATORY AWARE, NO FURTHER CHANGES, ALREADY RECEIVING MAXIMUM SUPPORT.
--- NOTE | 2017-09-25 21:05 | NUR ---
PTS BP LOW, DESPITE MAX ON 2 PRESSORS, STARTED . HR TRENDED DOWN TO 30'S. DAUGHTER AT BEDSIDE DURING THIS AND EDUCATED ON PTS CONDITION AND VITALS. PTS ARRIVED AT 2044. DAUGHTER, CARMELO, AND , NIKHIL, DISCUSSED AND CHOSE TO MAKE PT COMFORT CARE AT THAT TIME, ORDERS RECEIVED FROM DR HERRMANN. RT WAS PAGED TO THE UNIT TO EXTUBATE. BILATERAL SOFT WRIST RESTRAINTS WERE REMOVED AND PT WAS EXTUBATED AT 2049 WITH FAMILY AT BEDSIDE. IMMEDIATELY AFTER ETT WAS REMOVED PTS RHYTHM CHANGED FROM SB TO COARSE V-FIB. PER DR MENDOZA ORDER, THIS RN AND JESSICA NATARAJAN RN, PRONOUNCED TIME OF AT 2051 VIA AUSCULTATION OF ABSENT HEART TONES. CONSULTING PHYSICIANS NOTIFIED.
--- NOTE | 2017-09-26 15:11 | EKG ---
[place] [address] ELECTROCARDIOGRAM REPORT Name: APRIL MARTINEZ Room: [address]#: [id number] Admission: 09/25/17 Attend Phys: Meet Jones, Discharge: 09/25/17 Date of : 40 Report #: [id number] THIS REPORT FOR: //name// [facility] ED Test Date: 2017-09-25 Test Time: 10:10:16 Pat Name: APRIL MARTINEZ Department: Room: Gender: F Manager Credit Collections: Dontae DILLON : 1940 Requested By: Navin Torres Order Number: [id number] MD: Adria Mitchell Measurements Intervals [place] Rate: 70 P: 100 RI: 67 QRS: 15 QRSD: 125 T: 92 QT: 421 QTc: 455 Interpretive Statements av paced with fusion beats Compared to ECG 09/14/2017 20:06:54 paced beats are now seen Electronically Signed On 09-26-2017 15:10:52 CDT by Adria Mitchell [email or web address] <ELECTRONICALLY SIGNED> By: Adria Mitchell MD, [facility] 09/26/17 1510 1010 1010 Adria Mitchell MD, [facility] /EPI
--- NOTE | 2017-10-05 09:16 | NUR ---
entered onto restraint log 10/05/17
== END 2017-09-25 20:52 | DRG 871 ==
LOC: M.ERS 10:06 → M.TBA-ER 13:01 → M.ICU 13:18
PROVIDERS: Emergency Medicine Emergency Medical Services; ADMIT Family Medicine
DX: A41.9 Sepsis, unspecified organism (principal); J96.00 Acute respiratory failure, unspecified whether with hypoxia or hypercapnia; J69.0 Pneumonitis due to inhalation of food and vomit; J93.9 Pneumothorax, unspecified; J98.19 Other pulmonary collapse; R65.20 Severe sepsis without septic shock; Z51.5 Encounter for palliative care; Z66 Do not resuscitate; G20 Parkinson's disease; F03.90 Unspecified dementia, unspecified severity, without behavioral disturbance, psychotic disturbance, mood disturbance, and anxiety; Z82.49 Family history of ischemic heart disease and other diseases of the circulatory system; Z79.82 Long term (current) use of aspirin; Z79.899 Other long term (current) drug therapy; Z88.8 Allergy status to other drugs, medicaments and biological substances